=== PATIENT | female | born 1995 | race Caucasian/White ===

== ENCOUNTER → 2016-04-16 | Outpatient (REF) | payer MEDICAID ==
[~2016-04-16] MED LIST: CYAN500T44 PO; HYDR-3702 PO; PREN1TAB19 PO
== END ==
LOC: LAB 15:33
PROVIDERS: ATTEND Obstetrics & Gynecology
DX: Z34.03 Encounter for supervision of normal first pregnancy, third trimester (principal); Z67.41 Type O blood, Rh negative
CPT/HCPCS: 87653

== ENCOUNTER 2016-05-06 13:38 | Outpatient (CLI) | payer MEDICAID ==
[~2016-05-06] VITALS: Ht 149.9 cm; Wt 64.0 kg
[2016-05-06 14:10] VITALS: BP 115/72
[2016-05-06 15:08] VITALS: BP 96/65
== END 2016-05-06 15:15 | disposition home or self-care (01) ==
LOC: OBGOP 13:38
PROVIDERS: ATTEND Obstetrics & Gynecology
DX: O26.893 Other specified pregnancy related conditions, third trimester (principal); R10.84 Generalized abdominal pain; Z3A.38 38 weeks gestation of pregnancy
CPT/HCPCS: 99202

== ENCOUNTER 2016-05-09 08:58 | Inpatient (IN) | payer MEDICAID ==
[~2016-05-09] VITALS: Ht 149.9 cm; Wt 63.9 kg
[2016-05-09] VITALS (22 sets, daily range): BP systolic 99–179; BP diastolic 55–86
[2016-05-09] MEDS ORDERED: OXYTOCIN INJ 20 UNIT in NS 1000ml 1,000 ML IV PRN ×2 (09:46→10:00)
[2016-05-09] MEDS ORDERED: SODIUM CHLORIDE FLUSH 10 ML ONE (09:49)
[2016-05-09] MEDS ORDERED: CALCIUM CARBONATE CHEWABLE 300 MG (TUMS) TABLET PO PRN ×2 (09:50→10:00)
[2016-05-09 11:08] LABS: MEAN CORPUSCULAR HEMOGLOBIN 32.1 PG (26.0-34.0); MEAN CORPUSCULAR HGB CONC 33.9 g/dL (31.0-37.0); MEAN PLATELET VOLUME 9.8 FL (6.0-9.5); WHITE BLOOD COUNT 9.76 10^3uL (4.0-11.0)
[2016-05-09] MEDS ORDERED: OXYTOCIN INJ 20 UNIT in NS 1000ml 1,000 ML SCH (13:45)
[2016-05-09] MEDS ORDERED: OXYTOCIN INJ 20 UNIT in NS 1000ml 1,000 ML IV SCH (14:29)
[2016-05-09] MEDS ORDERED: ROPIVACAINE 1% 10 MG/ML (NAROPIN) 20 ML AMPUL ONE ×4 (17:07→23:35)
[2016-05-09 18:29] LABS: BILIRUBIN,URINE Negative (Negative); COLOR,URINE Yellow; GLUCOSE, URINE (UA) Negative (Negative); LEUKOCYTE ESTERASE ,URINE Negative (Negative); UROBILINOGEN,URINE 0.2 mg/dL (0.2-1.0)
[2016-05-09 19:00] LABS: CLARITY,URINE Slightly Cloudy; URINE CENTRIFUGED VOLUME 12 mL
[2016-05-09] MEDS ORDERED: SODIUM CHLORIDE VIAL (PF) 10 ML IV ONE (23:36)
[2016-05-10] VITALS (12 sets, daily range): BP systolic 102–136; BP diastolic 56–91
[2016-05-10] MEDS ORDERED: M-M-R II (MEASLES,MUMPS,RUBELLA) VACCINE SC SCH (03:15)
[2016-05-10] MEDS ORDERED: LANOLIN OINTMENT 28 GM TUBE TOP PRN (03:15)
[2016-05-10] MEDS ORDERED: ACETAMINOPHEN 325 MG TAB (TYLENOL) PO PRN (03:15)
--- NOTE | 2016-05-10 05:35 | NUR ---
Pt up out of bed into wheelchair moved to room 224. To bathroom, pericare done and instructions given, unable to void at this time. back to bed. Simon Mclain RN
[2016-05-10] MEDS: IBUPROFEN 600 MG (MOTRIN) TAB PO PRN ×2 (05:39→18:48)
[2016-05-10] MEDS: HYDROcodone/APAP 7.5 MG/325 MG (NORCO) TABLET PO PRN ×2 (10:25→21:00)
[2016-05-10] MEDS: DOCUSATE SODIUM 100 MG (COLACE) CAP PO SCH (21:00)
--- NOTE | 2016-05-10 21:46 | NUR ---
2014 Comes to nurses desk tearful. Through discussion she shares that she's concerned her baby is not getting enough breastmilk when she nurses. Principles of and milk production reiterated. Told her I would come and assist her during the next feeding session and support her through each feeding during the night. Plan of care for night discussed. 2044 During nursing assessment of her and baby, she shared further that she's just not comfortable with . I asked if it physically difficult for her as in holding and helping the baby latch, etc., or if she is just personally uncomfortable with the thought and process of , as in it just feels strange to her. She acknowledged the second reason as how she is uncomfortable. She remained tearful throughout entire discussion. She states that she is so tired and wants to sleep - sommenting that she hasn't slept well at all since Friday. She asked what her options were for feeding the baby if she didn't breastfeed. I shared that has to be the right choice for her. I offered to keep the baby during the night between nursings and let her sleep undisturbed otherwise. I also offered to keep the baby during the night and supplement with formula and she could decide on feeding options in the morning after a good night's sleep. She requested the second option of supplementing during the night and sleeping undisturbed until morning. I reiterated that she could ask for baby any time during the night if she woke and that if she wanted to try , I would assist her. I assured her we would support what decision is right for her. Her mother is supportive at her bedside. 2100 Ready for sleep. Smiling at this time and asked for acknowledgement that it was ok if she chose not to breastfeed. I assured her again we would support her decision. Medicated with [place] 7.5mg for back pain and to assist with falling asleep. Happy with plan of care for the night - for nursing staff to keep baby overnight and supplement with formula. Lights out.
--- NOTE | 2016-05-11 00:15 | NUR ---
Up to use the bathroom. Comes out to nurse's desk to see baby. Holds her for about 1/2 hour, commenting "I miss her and want to hold her."
--- NOTE | 2016-05-11 01:07 | NUR ---
States she has thought it over and does not want to continue with . Says baby is sucking on her hand asks for a pacifier. Pacifier provided along with a bottle of Similac and given instruction on bottle feeding baby is displaying hunger cues. Very different affect seen at this time compared to start of shift. Seems much more at ease with some sleep and decision to bottle feed. Smiling and talking to baby. Comments that "this will be really good because now I'm not the only one who can feed her."
--- NOTE | 2016-05-11 05:30 | NUR ---
Awake and comes to sit at the nurse's desk with her baby.
[2016-05-11] MEDS: HYDROcodone/APAP 7.5 MG/325 MG (NORCO) TABLET PO PRN ×2 (06:01→22:29)
[2016-05-11 06:53] LABS: MEAN PLATELET VOLUME 9.8 FL (6.0-9.5); WHITE BLOOD COUNT 10.74 10^3uL (4.0-11.0)
[2016-05-11 06:55] LABS: MEAN CORPUSCULAR HEMOGLOBIN 32.1 PG (26.0-34.0)
--- NOTE | 2016-05-11 08:29 | NUR ---
Pt remains asleep since shift started. Will continue to let her sleep and monitor baby in nursery. Assessment to be completed upon awakening.
[2016-05-11 09:28] VITALS: BP 108/58
[2016-05-11] MEDS: IBUPROFEN 600 MG (MOTRIN) TAB PO PRN (15:09)
[2016-05-11 20:45] VITALS: BP 112/38
[2016-05-11] MEDS: DOCUSATE SODIUM 100 MG (COLACE) CAP PO SCH (21:14)
--- NOTE | 2016-05-11 22:33 | NUR ---
Brings baby to nurse to keep for night. Reports a headache and requests a pain pill for it and to help her fall asleep. Medicated. Lights out, Mother here at bedside for night with her.
[2016-05-12] MEDS: IBUPROFEN 600 MG (MOTRIN) TAB PO PRN (02:50)
[2016-05-12 07:45] VITALS: BP 110/80
[2016-05-12] MEDS ORDERED: SODIUM CHLORIDE FLUSH 0 ML ONE (11:45)
--- NOTE | 2016-05-12 11:55 | NUR ---
Dismissal instructions provided. Pt. dismissed to home with family.
== END 2016-05-12 11:55 | disposition home or self-care (01) | DRG 775 ==
LOC: OB 08:58 → OBGOP 08:58 → OB 09:48
PROVIDERS: ADMIT Obstetrics & Gynecology; ATTEND Obstetrics & Gynecology
PROC: 10E0XZZ Delivery of Products of Conception, External Approach (ICD-10-PCS; principal; 2016-05-10)
PROC: 0KQM0ZZ Repair Perineum Muscle, Open Approach (ICD-10-PCS; 2016-05-10)
DX: O42.02 Full-term premature rupture of membranes, onset of labor within 24 hours of rupture (principal); O70.1 Second degree perineal laceration during delivery; Z3A.39 39 weeks gestation of pregnancy; Z37.0 Single live birth
CPT/HCPCS: 36415; 81003; 81015; 84112; 85027; 86850; 86870; 86900; 86901; 99203

== ENCOUNTER → 2016-06-18 | Outpatient (REF) | payer MEDICAID | LOC: LAB 10:30 | PROVIDERS: ATTEND Obstetrics & Gynecology | DX: Z39.2 Encounter for routine postpartum follow-up (principal) | CPT/HCPCS: 87491 ==

== ENCOUNTER → 2016-06-25 | Outpatient (REF) | payer MEDICAID | LOC: LAB 11:23 | PROVIDERS: ATTEND Obstetrics & Gynecology | DX: Z30.430 Encounter for insertion of intrauterine contraceptive device (principal) | CPT/HCPCS: 81025 ==